=== PATIENT | male | born 1975 ===

== ENCOUNTER 2018-02-10 15:14 | Emergency (ER) | payer OTHER ==
[2018-02-10 15:36] VITALS: O2SAT 98
--- NOTE | 2018-02-10 15:58 | ED PDOC ---
Arrival/HPI - General Chief Complaint: Upper Extremity Problem/Injury Time Seen by Provider: 02/10/18 15:21 Historian: Patient - History of Present Illness Narrative History of Present Illness (Text): 02/10/18 15:50 This 42 yo male with pmh htn, presents to this ED c/o left anterior shoulder pain x 3 months. Patient stated pain has been progressively worsen within last 10 days. Patient stated he saw a chiropractor last week, but after shoulder manipulation, pain had worsen. Patient feels his shoulder is swelling. Patient denies trauma, cp, sob, abdominal pain, dizziness, weakness, paresthesias, neck pain, AVERY, skin rash, IV drug use, fever, or abnormal gait. 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 Time/Duration: Other (see hpi) Context: Home, Work Past Medical History - Provider Review Nursing Documentation Reviewed: Yes - Cardiac Hx Hypertension: Yes - Psychiatric Hx Substance Use: No Family/Social History - Physician Review Nursing Documentation Reviewed: Yes Family/Social History: Other (noncontributory) Smoking Status: Never Smoked Hx Alcohol Use: No Hx Substance Use: No Allergies/Home Meds Allergies/Adverse Reactions: Allergies No Known Allergies Allergy (Verified 02/10/18 15:38) Home Medications: Home Meds Medication Instructions Recorded Confirmed Lisinopril/Hydrochlorothiazide 1 tab PO DAILY 02/10/18 02/10/18 [Lisinopril-Hctz 20-25 mg Tab] amLODIPine [Norvasc] 10 mg PO DAILY 02/10/18 02/10/18 Review of Systems - Review of Systems Constitutional: Normal. absent: Fatigue, Weight Change, Fevers, Night Sweats Eyes: Normal ENT: Normal Respiratory: Normal. absent: SOB, Cough Cardiovascular: Normal. absent: Chest Pain, Palpitations, Edema, Calf Pain, GIBSON , Orthopnea, Syncope Gastrointestinal: Normal Genitourinary Male: Normal Musculoskeletal: Other (left shoulder pain) Skin: Normal Neurological: Normal Endocrine: Normal Hemo/Lymphatic: Normal Psychiatric: Normal Physical Exam Vital Signs Temp Pulse Resp BP Pulse Ox 02/10/18 15:34 98.2 F 65 18 127/88 98 Temperature: Afebrile Blood Pressure: Normal Pulse: Regular Respiratory Rate: Normal Appearance: Positive for: Well-Appearing, Non-Toxic, Comfortable Pain Distress: None Mental Status: Positive for: Alert and Oriented X 3 - Systems Exam Head: Present: Atraumatic, Normocephalic Pupils: Present: PERRL Extroacular Muscles: Present: EOMI Conjunctiva: Present: Normal Mouth: Present: Moist Mucous Membranes Neck: Present: Normal Range of Motion Respiratory/Chest: Present: Clear to Auscultation, Good Air Exchange. No: Respiratory Distress, Accessory Muscle Use Cardiovascular: Present: Regular Rate and Rhythm, Normal S1, S2. No: Murmurs Abdomen: No: Tenderness, Distention, Peritoneal Signs Back: Present: Normal Inspection Upper Extremity: Present: NORMAL PULSES, Tenderness ((+) mild tenderness on the biceps tendon area on anterior humerus. It resembles bicipital tendonitis), Swelling (mild swelling over left anterior shoulder area), Neurovascularly Intact, Capillary Refill < 2s. No: Cyanosis, Edema, Normal ROM (ROM on left shoulder is decreawsed due to pain.), Erythema, Temperature Abnormalties Lower Extremity: Present: Normal Inspection, NORMAL PULSES, Normal ROM. No: Edema Neurological: Present: GCS=15, CN II-XII Intact, Speech Normal, Motor Func Grossly Intact, Normal Sensory Function, Normal Cerebellar Funct, Gait Normal Skin: Present: Warm, Dry, Normal Color. No: Rashes Psychiatric: Present: Alert, Oriented x 3, Normal Insight, Normal Concentration Medical Decision Making ED Course and Treatment: 02/10/18 16:46 Re-evaluation. Patient feels better. Discussed results and plan with patient who expresses understanding. All questions answered and there is agreement with the plan to discharge home with instructions. Patient stable for discharge. Return if symptoms persist or worsen Patient was recommended to f/u orthopedist for revaluation. I told patient he may need MRI, Local injection to control pain or both. To avoid using left arm to prevent worsening of pain. Patient wanted to get Steroid injection for shoulder inflammation. I reviewed the risk of using Medrol Dose Pack including AVN, glaucoma, DM, osteoporosis. Patient understood risk and he still agreed with Medrol Dose Pack which it is steroid medication. I told patient he could stop sooner if pain improves. Re-evaluation Time: 16:46 Reassessment Condition: Re-examined, Improved - RAD Interpretation Narrative RAD Interpretations (Text): 02/10/18 16:45 PROCEDURE: Radiographs of the Left Shoulder HISTORY: Non-traumatic pain COMPARISON: No prior. FINDINGS: BONES: Normal. No fracture. 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 SOFT TISSUES: Normal. OTHER FINDINGS: None. IMPRESSION: No evidence of acute displaced fracture nor dislocation. Minor DJD left acromioclavicular joint. Radiology Orders: 02/10/18 15:53 SHOULDER LEFT [RAD] Stat - Medication Orders Current Medication Orders: Discontinued Medications Ketorolac Tromethamine (Toradol) 30 mg IM STAT STA Stop: 02/10/18 15:53 Last Admin: 02/10/18 15:58 Dose: 30 mg MAR Pain Assessment Document 02/10/18 15:58 GMI (Rec: 02/10/18 15:59 GMI [facility] [place]-[id number]) Pain Reassessment Is this a pain reassessment? Yes Sleep Is patient sleeping during reassessment? No Presence of Pain Presence of Pain Yes Pain Scale Used Pain Scale Used Numeric Location Left, Right or Bilateral Left Pain Location Body Site Shoulder Description Description Intermittent Intensity of Pain at present 6 Pain Behavior Facial Grimacing Alleviating Factors sling IM Administration Charges Document 02/10/18 15:58 GMI (Rec: 02/10/18 15:59 GMI [facility] [place]-[id number]) Injection Site MAR Injection Site Left Deltoid Charges for Administration # of IM Administrations 1 Disposition/Present on Arrival - Present on Arrival Any Indicators Present on Arrival: No History of DVT/PE: No History of Uncontrolled Diabetes: No Urinary Catheter: No History of Decub. Ulcer: No History Surgical Site Infection Following: None - Disposition Have Diagnosis and Disposition been Completed?: Yes Diagnosis: Shoulder pain Disposition: HOME/ ROUTINE Disposition Time: 16:51 Patient Plan: Discharge Patient Problems: Current Active Problems Problem Status Onset Shoulder pain Acute Condition: GOOD Discharge Instructions (ExitCare): Shoulder Pain (DC), Biceps Tendinopathy Additional Instructions: Call private doctor for follow up visit in 1-2 days. You also need to call Dr. Guerin, orthopedist for follow up visit, and possible Injection and /or MRI of shoulder. Avoid using left arm. Take medication as instructed. Return to emergency if pain worsen. Prescriptions: Methocarbamol [Robaxin-750] 750 mg PO DAILY #10 tab Methylprednisolone [Medrol Dose Pack (21 tabs)] 4 mg PO DAILY #21 mg Naproxen 500 mg PO BID PRN #14 tab PRN Reason: Pain, Severe (8-10) Referrals: PCP,NO [Primary Care Provider] - Follow up with primary Janes Gurein DO [Staff Provider] - Follow up with primary Forms: [employer] (Vietnamese), WORK NOTE
--- NOTE | 2018-02-10 16:44 | RAD ---
PROCEDURE: Radiographs of the Left Shoulder HISTORY: Non-traumatic pain COMPARISON: No prior. FINDINGS: BONES: Normal. No fracture. 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 SOFT TISSUES: Normal. OTHER FINDINGS: None. IMPRESSION: No evidence of acute displaced fracture nor dislocation. Minor DJD left acromioclavicular joint.
[2018-02-10 17:23] VITALS: BP 127/82; PULSE 72; RESP 20; TEMP 98.5
== END 2018-02-10 17:21 | disposition home or self-care (01) ==
LOC: ED 15:14
DX: M25.512 Pain in left shoulder (principal); I10 Essential (primary) hypertension
CPT/HCPCS: 73030; 96372; 99284; J1885

== ENCOUNTER 2018-08-07 11:13 | Emergency (ER) | payer OTHER ==
[2018-08-07 11:31] VITALS: TEMP 98.2; O2SAT 99
--- NOTE | 2018-08-07 11:39 | ED PDOC ---
Arrival/HPI - General Chief Complaint: GI Problem Time Seen by Provider: 08/07/18 11:31 Historian: Patient - History of Present Illness Narrative History of Present Illness (Text): 08/07/18 12:05 A 43 year old male, with no significant past medical history, presents to the emergency department with a complaint of abdominal pain, nausea and diarrhea. The patient notes that the pain began this morning. He states that he has exp erienced similar symptoms about 2 months ago. He denies any recent travel, fevers, chills, weakness/ numbness/ tingling, headache, dizziness, cough, sore throat, chest pain, shortness of breath, dyspena on exertion, vomiting, neck/ back pain, urinary symptoms, trauma/ injury, or any other complaints. PMD: None Time/Duration: Other (This Morning) Symptom Onset: Sudden Symptom Course: Unchanged Activities at Onset: Rest, Light Context: Home Past Medical History - Provider Review Nursing Documentation Reviewed: Yes - Infectious Disease Hx of Infectious Diseases: None - Cardiac Hx Cardiac Disorders: Yes Hx Hypertension: Yes - Psychiatric Hx Substance Use: No - Anesthesia Hx Anesthesia Reactions: No Family/Social History - Physician Review Nursing Documentation Reviewed: Yes Family/Social History: No Known Family HX Smoking Status: Never Smoked Hx Alcohol Use: No Hx Substance Use: No Allergies/Home Meds Allergies/Adverse Reactions: Allergies No Known Allergies Allergy (Verified 02/10/18 15:38) Home Medications: Home Meds Medication Instructions Recorded Confirmed Lisinopril/Hydrochlorothiazide 1 tab PO DAILY 02/10/18 02/10/18 [Lisinopril-Hctz 20-25 mg Tab] RX: amLODIPine [Norvasc] 10 mg PO DAILY 02/10/18 02/10/18 Review of Systems - Physician Review All systems were reviewed & negative as marked: Yes - Review of Systems Constitutional: absent: Fevers Gastrointestinal: absent: Vomiting Physical Exam - Physical Exam Narrative Physical Exam (Text): 08/07/18 12:08 Constitutional: No acute distress. Head: Normocephalic. Atraumatic. Eyes: PERRL. ENT: Moist mucous membranes. Neck: Supple. Cardiovascular: Regular rate. Chest: No tenderness. Respiratory: Clear to auscultation bilaterally. GI: Soft. Nontender. Nondistended. Back: No CVA tenderness. Musculoskeletal: No tenderness or swelling of extremities. Skin: No rash. Neurologic: Alert, no focal deficit Vital Signs Reviewed: Yes Vital Signs Temp Pulse Resp BP Pulse Ox 08/07/18 11:27 98.2 F 80 16 148/88 99 Temperature: Afebrile Blood Pressure: Normal Pulse: Regular Respiratory Rate: Normal Appearance: Positive for: Well-Appearing, Non-Toxic, Comfortable Pain Distress: None Mental Status: Positive for: Alert and Oriented X 3 Medical Decision Making ED Course and Treatment: 08/07/18 12:08 Impression: A 43 year old male presents to the emergency department with a complaint of abdominal pain, nausea, and diarrhea without any abdominal tenderness or guarding. Plan: -- Labs -- IVF -- Zofran -- Reassess and disposition Progress Notes: Patient declines labs and states will follow up with primary care. Instructed to return to ED for worsening pain, fever, vomiting, bleeding, or any other problem. - Scribe Statement The provider has reviewed the documentation as recorded by the Scribe Kayla Pierre Provider Scribe Attestation: All medical record entries made by the Scribe were at my direction and personally dictated by me. I have reviewed the chart and agree that the record accurately reflects my personal performance of the history, physical exam, medical decision making, and the department course for this patient. I have also personally directed, reviewed, and agree with the discharge instructions and disposition. Disposition/Present on Arrival - Present on Arrival Any Indicators Present on Arrival: No History of DVT/PE: No History of Uncontrolled Diabetes: No Urinary Catheter: No History of Decub. Ulcer: No History Surgical Site Infection Following: None - Disposition Have Diagnosis and Disposition been Completed?: Yes Diagnosis: Nausea, Diarrhea Disposition: HOME/ ROUTINE Disposition Time: 11:38 Patient Plan: Discharge Condition: STABLE Discharge Instructions (ExitCare): Viral Gastroenteritis, Adult (DC) Prescriptions: Ondansetron ODT [Zofran ODT] 4 mg PO Q8 #12 odt Referrals: Sri Johnson MD [Staff Provider] - Follow up with primary Forms: [employer] (Danish), WORK NOTE
[2018-08-07 11:54] VITALS: BP 130/78; PULSE 72; RESP 18
== END 2018-08-07 11:54 | disposition home or self-care (01) ==
LOC: ED 11:13
DX: R11.0 Nausea (principal); R19.7 Diarrhea, unspecified; I10 Essential (primary) hypertension

== ENCOUNTER 2018-10-20 16:30 | Emergency (ER) | payer OTHER ==
[2018-10-20] MEDS ORDERED: Sodium Chloride 0.9% 1,000 ML IV STA (17:10)
--- NOTE | 2018-10-20 17:14 | ED PDOC ---
Arrival/HPI - General Chief Complaint: Flu-like Symptoms Historian: Patient - History of Present Illness Narrative History of Present Illness (Text): 10/20/18 17:11 43 year old male, pmh including htn, nkda, complaining of feeling fatigue/runny nose and tired x 1 day. Pt. stated that he is having flu like symptoms, runny nose, associated fatigue and fever, no night sweat, no rash, no dizziness, no change in vision, no numbness or tingling, no palpitation, no other medical or psychological complaints. Past Medical History - Provider Review Nursing Documentation Reviewed: Yes - Infectious Disease Hx of Infectious Diseases: None - Cardiac Hx Cardiac Disorders: Yes Hx Hypertension: Yes - Psychiatric Hx Substance Use: No - Anesthesia Hx Anesthesia: Yes Hx Anesthesia Reactions: No Hx Malignant Hyperthermia: No Family/Social History - Physician Review Nursing Documentation Reviewed: Yes Family/Social History: Unknown Family HX Smoking Status: Never Smoked Hx Alcohol Use: No Hx Substance Use: No Allergies/Home Meds Allergies/Adverse Reactions: Allergies No Known Allergies Allergy (Verified 02/10/18 15:38) Home Medications: Home Meds Medication Instructions Recorded Confirmed Lisinopril/Hydrochlorothiazide 1 tab PO DAILY 02/10/18 02/10/18 [Lisinopril-Hctz 20-25 mg Tab] amLODIPine [Norvasc] 10 mg PO DAILY 02/10/18 02/10/18 Review of Systems - Review of Systems Constitutional: Fatigue, Fevers Eyes: absent: Vision Changes ENT: Rhinorrhea. absent: Hearing Changes Respiratory: absent: SOB, Cough, Sputum Cardiovascular: absent: Chest Pain Gastrointestinal: absent: Abdominal Pain, Nausea, Vomiting Musculoskeletal: Myalgias. absent: Arthralgias, Back Pain, Neck Pain, Joint Swelling Skin: absent: Rash, Pruritis Neurological: absent: Headache, Dizziness Psychiatric: absent: Anxiety, Depression, Suicidal Ideation Physical Exam Vital Signs Reviewed: Yes Vital Signs Temp Pulse Resp BP Pulse Ox 10/20/18 16:59 99.4 F 113 H 18 143/110 H 95 10/20/18 16:30 99.8 F H 114 H 18 147/98 H 96 Temperature: Afebrile Blood Pressure: Hypertensive Pulse: Tachycardic Respiratory Rate: Normal Appearance: Positive for: Well-Appearing, Non-Toxic, Comfortable Pain Distress: Mild Mental Status: Positive for: Alert and Oriented X 3 - Systems Exam Head: Present: Atraumatic, Normocephalic Pupils: Present: PERRL Extroacular Muscles: Present: EOMI Conjunctiva: Present: Normal Ears: Present: NORMAL TM, Normal Canal. No: Erythema Mouth: Present: Moist Mucous Membranes Pharnyx: No: ERYTHEMA, EXUDATE, TONSILS ENLARGED Nose (External): Present: Atraumatic. No: Abrasion, Contusion, Laceration Nose (Internal): Present: Normal Inspection, No Active Bleeding, Rhinorrhea. No: Septal Deviation, Septal Hematoma, Epistaxis Neck: Present: Normal Range of Motion, Trachea Midline. No: Meningeal Signs, MIDLINE TENDERNESS, Paraspinal Tenderness, Lymphadenopathy Respiratory/Chest: Present: Clear to Auscultation, Good Air Exchange. No: Respiratory Distress, Accessory Muscle Use, Wheezes, Decreased Breath Sounds, Rales, Retracting, Rhonchi, Tachypneic, Tender to Palpation Cardiovascular: Present: Regular Rate and Rhythm, Normal S1, S2. No: Murmurs Abdomen: No: Tenderness, Distention, Peritoneal Signs, Rebound, Guarding Back: Present: Normal Inspection Upper Extremity: Present: Normal Inspection. No: Cyanosis, Edema Lower Extremity: Present: Normal Inspection. No: Edema Neurological: Present: GCS=15, CN II-XII Intact, Speech Normal, Motor Func Grossly Intact, Gait Normal, Memory Normal Skin: Present: Warm, Dry, Normal Color. No: Rashes Psychiatric: Present: Alert, Oriented x 3, Normal Insight, Normal Concentration Medical Decision Making ED Course and Treatment: 10/20/18 17:12 -rapid flu -IVF/tylenol/toradol -Observe and reassess 10/20/18 19:01 -rapid flu is negative -Labs are non-significant -Pt. feeling much better, eating and drinking well. -Discharge home with tamiflu, tylenol/motrin, stay hydrated, bed rest, follow up with your own pmd within 2 days, return to the ER for any new or worsening signs or symptoms. - PA / [employer] / Resident Statement / has reviewed & agrees with the documentation as recorded. Disposition/Present on Arrival - Present on Arrival Any Indicators Present on Arrival: No History of DVT/PE: No History of Uncontrolled Diabetes: No Urinary Catheter: No History of Decub. Ulcer: No History Surgical Site Infection Following: None - Disposition Have Diagnosis and Disposition been Completed?: Yes Diagnosis: Influenza Disposition: HOME/ ROUTINE Disposition Time: 17:14 Patient Plan: Discharge Patient Problems: Current Active Problems Problem Status Onset Influenza Acute Condition: IMPROVED Additional Instructions: -Discharge home with tamiflu, tylenol/motrin, stay hydrated, bed rest, follow up with your own pmd within 2 days, return to the ER for any new or worsening signs or symptoms. Prescriptions: Acetaminophen [Tylenol] 2 cap PO QID PRN #30 capsule PRN Reason: Other Ibuprofen [Motrin Tab] 600 mg PO QID PRN #30 tab PRN Reason: Other Oseltamivir Phosphate [Tamiflu] 75 mg PO BID #10 capsule Referrals: [facility] at [facility] [place] [Outside] - Follow up with primary Forms: [employer] (Gambian), WORK NOTE
[2018-10-20 18:01] LABS: BASO # 0.02 K/mm3 (0.0-2.0); BASO % 0.3 % (0.0-3.0); EOS # 0.1 (0.0-0.7); EOS % 1.9 % (1.5-5.0); HEMOGLOBIN 15.7 g/dL (14.0-18.0); LYMPH # 0.7 (1.2-3.4); LYMPH % 10.8 % (22.0-35.0); MEAN CELL VOLUME 86.2 fl (80.0-105.0); MEAN CORPUSCULAR HEMOGLOBIN 30.1 pg (25.0-35.0); MEAN CORPUSCULAR HGB CONC 34.9 g/dl (31.0-37.0); MEAN PLATELET VOLUME 10.8 fl (7.0-11.0); MONO # 0.5 (0.1-0.6); MONO % 7.7 % (1.0-6.0); RBC 5.22 10^6/uL (3.5-6.1); RED CELL DISTRIBUTION WIDTH 12.9 % (11.5-14.5); WHITE BLOOD COUNT 6.8 10^3/uL (4.5-11.0)
[2018-10-20 18:08] LABS: ALB/GLOB RATIO 1.3 (1.1-1.8); ALBUMIN 4.7 g/dL (3.0-4.8); ALT/SGPT 25 U/L (7-56); AST/SGOT 29 U/L (17-59); BLOOD UREA NITROGEN 13 mg/dL (7-21); CALCIUM 9.3 mg/dL (8.4-10.5); GFR NON-AFRICAN AMERICAN > 60
[2018-10-20 18:28] VITALS: RESP 16
[2018-10-20 19:15] VITALS: BP 155/86; PULSE 97; TEMP 98.1; O2SAT 97
== END 2018-10-20 19:10 | disposition home or self-care (01) ==
LOC: ED 16:30
DX: J11.1 Influenza due to unidentified influenza virus with other respiratory manifestations (principal); I10 Essential (primary) hypertension
CPT/HCPCS: 80053; 85025; 87804; 96374; 99283; J1885; J7030

== ENCOUNTER 2018-11-04 12:22 | Emergency (ER) | payer OTHER ==
[2018-11-04 12:48] VITALS: BP 143/82; PULSE 99; RESP 18; TEMP 98.4; O2SAT 98
--- NOTE | 2018-11-04 13:29 | ED PDOC ---
Arrival/HPI - General Chief Complaint: Cough, Cold, Congestion Time Seen by Provider: 11/04/18 12:24 Historian: Patient - History of Present Illness Narrative History of Present Illness (Text): 11/04/18 13:28 43 year old male, with past medical history of hypertension, presents to the ED for evaluation of chest congestion and cough since . Patient reports he was recently tested positive for the flu and was started on Tamiflu. Patient reports unchanged since then prompting him to present to the ED again for evaluation. Patient denies any other associated somatic complaints. Patient denies any fevers, chills, headache, dizziness, chest pain, shortness of breath, dyspnea on exertion, abdominal pain, nausea, vomiting, diarrhea, back pain, neck pain, or any other complaints. Time/Duration: 1 week Symptom Onset: Gradual Symptom Course: Unchanged Context: Home Past Medical History - Provider Review Nursing Documentation Reviewed: Yes - Infectious Disease Hx of Infectious Diseases: None - Cardiac Hx Cardiac Disorders: Yes Hx Hypertension: Yes - Pulmonary Hx Sleep Apnea: Yes Other/Comment: c-PAP - Psychiatric Hx Substance Use: No - Anesthesia Hx Anesthesia: Yes Hx Anesthesia Reactions: No Hx Malignant Hyperthermia: No Family/Social History - Physician Review Nursing Documentation Reviewed: Yes Family/Social History: No Known Family HX Smoking Status: Never Smoked Hx Alcohol Use: No Hx Substance Use: No Allergies/Home Meds Allergies/Adverse Reactions: Allergies No Known Allergies Allergy (Verified 02/10/18 15:38) Home Medications: Home Meds Medication Instructions Recorded Confirmed Lisinopril/Hydrochlorothiazide 1 tab PO DAILY 02/10/18 11/04/18 [Lisinopril-Hctz 20-25 mg Tab] RX: amLODIPine [Norvasc] 10 mg PO DAILY 02/10/18 11/04/18 Z-Pack 11/04/18 Review of Systems - Physician Review All systems were reviewed & negative as marked: Yes - Review of Systems Constitutional: absent: Fevers Respiratory: Cough, Other (Chest congestion). absent: SOB Cardiovascular: absent: Chest Pain Gastrointestinal: absent: Abdominal Pain, Diarrhea, Nausea, Vomiting Genitourinary Male: absent: Dysuria, Urinary Output Changes Musculoskeletal: absent: Back Pain, Neck Pain Skin: absent: Rash Neurological: absent: Headache, Dizziness Psychiatric: absent: Anxiety Physical Exam Vital Signs Reviewed: Yes Vital Signs Temp Pulse Resp BP Pulse Ox 11/04/18 12:44 98.4 F 99 H 18 143/82 98 Temperature: Afebrile Blood Pressure: Normal Pulse: Regular Respiratory Rate: Normal Appearance: Positive for: Well-Appearing, Non-Toxic, Comfortable Pain Distress: None Mental Status: Positive for: Alert and Oriented X 3 - Systems Exam Head: Present: Atraumatic, Normocephalic Pupils: Present: PERRL Extroacular Muscles: Present: EOMI Conjunctiva: Present: Normal Mouth: Present: Moist Mucous Membranes Neck: Present: Normal Range of Motion Respiratory/Chest: Present: Clear to Auscultation, Good Air Exchange. No: Respiratory Distress, Accessory Muscle Use Cardiovascular: Present: Regular Rate and Rhythm, Normal S1, S2. No: Murmurs Abdomen: No: Tenderness, Distention, Peritoneal Signs Back: Present: Normal Inspection Upper Extremity: Present: Normal Inspection. No: Cyanosis, Edema Lower Extremity: Present: Normal Inspection. No: Edema Neurological: Present: GCS=15, CN II-XII Intact, Speech Normal Skin: Present: Warm, Dry, Normal Color. No: Rashes Psychiatric: Present: Alert, Oriented x 3, Normal Insight, Normal Concentration Medical Decision Making ED Course and Treatment: 11/04/18 13:33 Impression: 43 year old male presents to the ED for evaluation of flu-like symptoms. Plan: -- CXR -- Influenza A/B -- Reassess and disposition Prior Visits: Notes and results from previous visits were reviewed. Progress Notes: 11/04/18 14:00 Patient is refusing flu swab. 11/04/18 15:24 CXR reviewed by radiologist, shows no active disease. 11/04/18 16:03 lungs cta cxr neg declines flu swab alreaedy s/p tamiflu. on phone in nad suspect post viral tussis - RAD Interpretation Radiology Orders: 11/04/18 13:17 CXR [CHEST TWO VIEWS (PA/LAT)] [RAD] Stat - Scribe Statement The provider has reviewed the documentation as recorded by the Scribe Adiel Churchill. All medical record entries made by the Scribe were at my direction and per sonally dictated by me. I have reviewed the chart and agree that the record accurately reflects my personal performance of the history, physical exam, medical decision making, and the department course for this patient. I have also personally directed, reviewed, and agree with the discharge instructions and disposition. Disposition/Present on Arrival - Present on Arrival Any Indicators Present on Arrival: No History of DVT/PE: No History of Uncontrolled Diabetes: No Urinary Catheter: No History of Decub. Ulcer: No History Surgical Site Infection Following: None - Disposition Have Diagnosis and Disposition been Completed?: Yes Diagnosis: Cough Disposition: HOME/ ROUTINE Disposition Time: 12:00 Patient Problems: Current Active Problems Problem Status Onset Cough Acute Condition: STABLE Discharge Instructions (ExitCare): Cough in Adults Prescriptions: Albuterol 0.083% [Albuterol 0.083% Inhal Erendira (2.5 mg/3 ml) UD] 2.5 mg IH Q4 PRN #20 neb PRN Reason: Wheezing Referrals: [facility] [Outside] - Follow up with primary [facility] [place] - Follow up with primary Forms: [facility] [facility] (Andorran), WORK NOTE
--- NOTE | 2018-11-04 14:58 | RAD ---
Date of service: 11/04/2018 HISTORY: cough COMPARISON: No prior. TECHNIQUE: Chest PA and lateral FINDINGS: LUNGS: No active pulmonary disease. PLEURA: No significant pleural effusion identified. No pneumothorax apparent. CARDIOVASCULAR: No aortic atherosclerotic calcification present. Normal cardiac size. No pulmonary vascular congestion. OSSEOUS STRUCTURES: No significant abnormalities. VISUALIZED UPPER ABDOMEN: Normal. OTHER FINDINGS: None. IMPRESSION: No active disease.
== END 2018-11-04 15:15 | disposition home or self-care (01) ==
LOC: ED 12:22
DX: R05 Cough (principal)